=== PATIENT | female | born 1960 ===

== ENCOUNTER 2024-09-30 12:15 | Inpatient (IN) | payer OTHER ==
[~2024-09-30] VITALS: Ht 162.6 cm; Wt 75.3 kg
[2024-09-30] MEDS ORDERED: FOSAMAX70 MG PO (14:00)
[2024-09-30 14:01] VITALS: BP 144/81
[2024-09-30] MEDS ORDERED: MULTIPLE VITAM1 EAC2 PO (14:01)
[2024-09-30 14:02] VITALS: BP 118/78
[2024-09-30 15:28] LABS: RH POSITIVE
[2024-10-05] MEDS ORDERED: CEFAZOLIN SODIUM 1,000 MG VIAL IV ONE (13:30)
[2024-10-05] MEDS ORDERED: POVIDONE-IODINE 118 ML BOTT TOP ONE (13:45)
[2024-10-05] MEDS ORDERED: ONDANSETRON HCL 2 MG/ML VIAL IV PRN (14:15)
[2024-10-05] MEDS ORDERED: MORPHINE SULFATE 4 MG,MORPHINE SULFATE 2 MG IV PRN (14:15)
[2024-10-05] MEDS ORDERED: RINGERS SOLUTION,LACTATED 1,000 ML IV SCH (14:15)
[2024-10-05 16:55] VITALS: BP 118/78
[2024-10-05] MEDS ORDERED: CEFAZOLIN SODIUM 1,000 MG VIAL IV SCH (18:00)
[2024-10-05 18:14] LABS: BASO % 0.3 % (0.1-1.2); EOS # 0.10 (0.04-0.54); EOS % 0.8 % (0.7-7.0); LYMPH # 2.17 (1.18-3.74); LYMPH % 16.4 % (19.3-53.1); MEAN PLATELET VOLUME 9.00 fl (9.4-12.4); MONO # 0.76 (0.24-0.82); MONO % 5.8 % (4.7-12.5); NEUT # 10.11 (1.56-6.13); NEUT % 76.5 % (34.0-71.1); RED CELL DISTRIBUTION WIDTH 13.4 % (11.6-14.4)
[2024-10-05 20:36] VITALS: BP 114/66
[2024-10-05] MEDS ORDERED: OxyCODONE HCL 5 MG TABLET (ROXICODONE) PO PRN (20:45)
[2024-10-05] MEDS ORDERED: ACETAMINOPHEN 325 MG TABLET PO PRN (20:45)
[2024-10-06] VITALS: BP 103/67
[2024-10-06] MEDS ORDERED: IBU800 MG PO (06:44)
[2024-10-06] MEDS ORDERED: NEURONTIN300 MG PO (06:44)
[2024-10-06] MEDS ORDERED: OXYCODONE HCL5 MG PO (06:44)
[2024-10-06] MEDS ORDERED: ENOXAPARIN SODIUM 40 MG/0.4 ML SYRINGE SUBCUTANEO SCH (09:00)
[2024-10-06 09:06] VITALS: BP 117/72; O2SAT 98
== END 2024-10-06 11:05 | disposition home or self-care (01) | DRG 743 ==
LOC: OB/GYN 10-05 07:00 → O/R 10-05 13:10 → OB/GYN 10-05 16:24
PROVIDERS: ADMIT Obstetrics & Gynecology Gynecology; ATTEND Obstetrics & Gynecology Gynecology
PROC: 0USG7ZZ Reposition Vagina, Via Natural or Artificial Opening (ICD-10-PCS; 2024-10-05)
PROC: 0UT97ZZ Resection of Uterus, Via Natural or Artificial Opening (ICD-10-PCS; principal; 2024-10-05 07:00)
DX: D25.1 Intramural leiomyoma of uterus (principal); D25.2 Subserosal leiomyoma of uterus; D25.0 Submucous leiomyoma of uterus; N80.03 Adenomyosis of the uterus; N81.4 Uterovaginal prolapse, unspecified